=== PATIENT | female | born 1950 | race Caucasian/White ===

== ENCOUNTER 2018-12-17 07:46 | Outpatient (CLI) | payer OTHER | END 2018-12-17 07:52 | disposition home or self-care (01) | LOC: SONOGRAMA 07:46 | DX: E04.1 Nontoxic single thyroid nodule (principal) ==

== ENCOUNTER 2024-01-18 08:30 | Outpatient (CLI) | payer OTHER | END 2024-01-18 08:33 | disposition home or self-care (01) | LOC: SONOGRAMA 08:30 | PROVIDERS: ATTEND Pathology Anatomic Pathology & Clinical Pathology | DX: D44.0 Neoplasm of uncertain behavior of thyroid gland (principal); E04.1 Nontoxic single thyroid nodule ==